=== PATIENT | male | born 1950 | race Caucasian/White ===

== ENCOUNTER 2016-12-27 16:33 | Outpatient (CLI) | payer OTHER | END 2016-12-27 16:34 | disposition critical access hospital (66) | LOC: EMS 16:33 | PROVIDERS: ATTEND Surgery | DX: I46.9 Cardiac arrest, cause unspecified (principal) | CPT/HCPCS: A0425; A0433 ==

== ENCOUNTER 2016-12-27 17:58 | Emergency (ER) | payer OTHER | END 2016-12-27 20:15 | disposition E | DX: I46.9 Cardiac arrest, cause unspecified (principal); I10 Essential (primary) hypertension; N40.0 Benign prostatic hyperplasia without lower urinary tract symptoms; Z87.442 Personal history of urinary calculi; F17.200 Nicotine dependence, unspecified, uncomplicated ==